=== PATIENT | male | born 1950 | race Caucasian/White ===

== ENCOUNTER → 2018-02-27 | Outpatient (CLI) | payer MEDICARE ==
[2018-02-27 21:50] LABS: Ragweed,Common IgE 4.28 kU/L
[2018-02-27 21:51] LABS: Red Top (Bentgrass) IgE 0.54 kU/L
[2018-02-27 21:52] LABS: Cat Epith & Dander IgE 0.12 kU/L; Dermato. farinae IgE 0.28 kU/L; Dog Dander IgE <0.10 kU/L
[2018-02-27 21:53] LABS: Cockroach IgE <0.10 kU/L
[2018-02-27 21:54] LABS: Alternaria alternata IgE <0.10 kU/L; Maple (Box Elder) IgE 0.67 kU/L
[2018-02-27 21:56] LABS: Birch IgE <0.10 kU/L; Elm IgE <0.10 kU/L; Oak IgE <0.10 kU/L
== END | disposition home or self-care (01) ==
LOC: LABWHC1 15:19
PROVIDERS: ATTEND Internal Medicine Critical Care Medicine
DX: J45.909 Unspecified asthma, uncomplicated (principal); T78.40XA Allergy, unspecified, initial encounter
CPT/HCPCS: 36415; 82785; 86003

== ENCOUNTER → 2023-01-24 | Outpatient (CLI) | payer MEDICARE ==
--- NOTE | 2023-01-24 09:03 | BD ---
EXAMINATION TYPE: Axial Bone Density DATE OF EXAM: 01/24/2023 CLINICAL HISTORY: 72 years old Male. ICD-10 CODE: R29.890 LOSS OF HEIGHT Height: 68.3 Weight: 239 FRAX RISK QUESTIONS: Glucocorticoids (More than 3mos): yes (Ex: prednisone, prednisolone, methylprednisolone, dexamethasone, and hydrocortisone). History of Fracture in Adulthood: yes RISK FACTORS HISTORY OF: hx of hand fx at 32 yrs old History of Wrist Fracture: hx of elbow fx at 15 yrs old, left Surgery to Spine...epidural injections into spine Lost more than 2 inches in height since high school: yes Hyperparathyroidism: no Adrenal Insufficiency: no MEDICATIONS: Prednisone or other steroids: yes, for back pain, often, copd and asthma, advair, many yrs Additional Medications: bp med, reflux meds, diuretic, vit d and multivitamin Additional History: height loss, hx of partial knee replacement, prednisone, arthritis, plantar fasci itis, EXAM MEASUREMENTS: Bone mineral densitometry was performed using the [facility]. Bone mineral density as measured about the Lumbar spine is: ----- L1-L4(G/cm2): 1.462 T Score Values are as follows: ----- L1: 1.5 ----- L2: 1.3 ----- L3: 2.3 ----- L4: 3.6 ----- L1-L4: 2.3 Z Score Values are as follows: ----- L1: 1.1 ----- L2: 0.8 ----- L3: 1.9 ----- L4: 3.1 ----- L1-L4: 1.9 Bone mineral density is his first bone density. Bone mineral density about the R hip (g/cm2): 1.063 Bone mineral density about the L hip (g/cm2): 1.124 T Score values are as follows: -----R Neck: 0.4 -----L Neck: 0.3 -----R Total: 0.4 -----L Total: 0.9 Z Score values are as follows: -----R Neck: 1.0 -----L Neck: 0.9 -----R Total: 0.1 -----L Total: 0.5 Bone mineral density is his first dexa study....baseline FRAX%s: The graph provided illustrates a 9.8% chance for a major osteoporotic fx and a 1.3% chance fo r the hips probability for fx in 10 years time. IMPRESSION: Normal (Values between +1 and -1 indicate normal bone mass). Consider repeating this study in 5 year s or sooner if there is some new clinical indication. NOTE: T-SCORE=SD OF THE YOUNG ADULT MEAN.
== END | disposition home or self-care (01) ==
LOC: RADBDWWP 07:59
PROVIDERS: ATTEND Family Medicine
DX: R29.890 Loss of height (principal)
CPT/HCPCS: 77080

== ENCOUNTER 2024-05-21 21:33 | Inpatient (IN) | payer MEDICARE ==
[2024-05-22] LABS: ALT 94 U/L (4-49); AST 90 U/L (17-59); African American GFR (CKD) >90 (>60 ml/min/1.73 sqM); Albumin 3.5 g/dL (3.5-5.0); Alkaline Phosphatase 130 U/L (38-126); Anion Gap 10 mmol/L; Blood Urea Nitrogen 16 mg/dL (9-20); Calcium 8.4 mg/dL (8.4-10.2); Carbon Dioxide 24 mmol/L (22-30); Chloride 97 mmol/L (98-107); Glucose 118 mg/dL (74-99); Non-African American GFR(CKD) 89 (>60 ml/min/1.73 sqM); Potassium 3.7 mmol/L (3.5-5.1); Sodium 131 mmol/L (137-145); Total Bilirubin 0.5 mg/dL (0.2-1.3); Total Protein 6.3 g/dL (6.3-8.2)
[2024-05-22 00:09] LABS: NT-Pro-B-Type Natriuretic Pept 124 pg/mL
--- NOTE | 2024-05-22 00:21 | XR ---
EXAM: XR Chest, 2 Views CLINICAL HISTORY: ITS.REASON XR Reason: difficulty breathing TECHNIQUE: Frontal and lateral views of the chest. COMPARISON: Chest x-ray of 05/15/2016. FINDINGS: Lungs: There is patchy airspace disease at the right mid lower lung zones presumably on the basilar pneumonia. Similar consolidative changes noted at the retrocardiac region of the left lung base. Pleural space: Unremarkable. No pneumothorax. Heart: Heart is normal in size. No cardiomegaly. Mediastinum: Unremarkable. Normal mediastinal contour. Bones/joints: Osseous structures and soft tissues are unremarkable. No acute fracture. IMPRESSION: Findings most suggestive of multifocal pneumonia. Clinical correlation and short-term imaging in 4-6 weeks is advised to document resolution. If there is concern for other etiologies, CT imaging of the chest should be performed.
[2024-05-22 00:27] LABS: Influenza A Not Detected (Not Detectd); Influenza B Not Detected (Not Detectd); RSV Detected (Not Detectd)
[2024-05-22 00:48] LABS: Basophils % (A) 0 %; Eosinophils # (A) 0.1 k/uL (0-0.7); Eosinophils % (A) 1 %; HCT 36.3 % (39.0-53.0); HGB 11.6 gm/dL (13.0-17.5); Lymphocytes # (A) 0.9 k/uL (1.0-4.8); Lymphocytes % (A) 10 %; MCH 28.6 pg (25.0-35.0); MCV 89.3 fL (80.0-100.0); Mean Platelet Volume 7.7; Monocytes # (A) 0.8 k/uL (0-1.0); Monocytes % (A) 9 %; Neutrophils # (A) 6.7 k/uL (1.3-7.7); Neutrophils % (A) 77 %; Platelet Count 293 k/uL (150-450); RBC 4.06 m/uL (4.30-5.90); RDW 13.9 % (11.5-15.5); WBC 8.7 k/uL (3.8-10.6)
[2024-05-22] MEDS ORDERED: IPRATROPIUM-ALBUTEROL 3 ML NEB INHALATION PRN (01:08)
[2024-05-22] MEDS ORDERED: PNEUMONIA PROTOCOL UTILIZED 1 EACH MISC PO PRN (01:08)
--- NOTE | 2024-05-22 01:09 | ED ---
SOB HPI - General Chief Complaint: Shortness of Breath Stated Complaint: JORGITO/+RSV Time Seen by Provider: 05/21/24 21:40 Source: patient Mode of arrival: ambulatory Limitations: no limitations - History of Present Illness Initial Comments: 73-year-old male with past medical history of asthma presents to the emergency department complaining of shortness of breath. States that last he went to an urgent care for upper respiratory symptoms and tested positive for RSV. States that his symptoms have gotten worse to the point where he feels like he cannot breathe. Patient does have a history of asthma. Previously used albuterol inhaler very sparingly. States that he would go for months without using it. During this illness he has been using it every 4 hours with continued shortness of breath. He denies any chest pain. States that his cough was originally productive with clear sputum and has turned to a thick, yellow sputum and he feels like he is choking. He has had intermittent fevers. His has also been sick. He reports that he does have oxygen at home however this is not prescribed him. He denies history of cardiac disease. Denies nausea or vomiting. He does have chronic swelling in his right lower extremity secondary to a DVT. States this is not any worse than previous. He denies any additional symptoms to include chest pain, headache, back pain. No other alleviating, precipitating or modifying factors - Related Data Allergies Allergy/AdvReac Type Severity Reaction Status Date / Time bacitracin Allergy Rash/Hives Verified 05/21/24 21:44 [From Neosporin ([id number])] neomycin Allergy Rash/Hives Verified 05/21/24 21:44 [From Neosporin ([id number])] Penicillins Allergy Rash/Hives Verified 05/21/24 21:44 polymyxin B Allergy Rash/Hives Verified 05/21/24 21:44 [From Neosporin ([id number])] lisinopril AdvReac Unknown Verified 05/21/24 21:44 Review of Systems ROS Statement: Those systems with pertinent positive or pertinent negative responses have been documented in the HPI. ROS Other: All systems not noted in ROS Statement are negative. Past Medical History Past Medical History: Asthma, Hyperlipidemia, Hypertension History of Any Multi-Drug Resistant Organisms: None Reported Past Surgical History: Joint Replacement Past Psychological History: No Psychological Hx Reported Smoking Status: Never smoker Past Alcohol Use History: Occasional Past Drug Use History: None Reported General Exam Limitations: no limitations General appearance: alert, in no apparent distress Head exam: Present: atraumatic, normocephalic, normal inspection Eye exam: Present: normal appearance, PERRL, EOMI. Absent: scleral icterus, conjunctival injection, periorbital swelling ENT exam: Present: normal exam, mucous membranes moist Neck exam: Present: normal inspection. Absent: tenderness, meningismus, lymphadenopathy Respiratory exam: Present: decreased breath sounds, other (Coarse breath sounds bilaterally). Absent: respiratory distress, wheezes, rales, rhonchi, stridor Cardiovascular Exam: Present: regular rate, normal rhythm, normal heart sounds. Absent: systolic murmur, diastolic murmur, rubs, gallop, clicks GI/Abdominal exam: Present: soft, normal bowel sounds. Absent: distended, tenderness, guarding, rebound, rigid Extremities exam: Present: normal inspection, full ROM, normal capillary refill. Absent: tenderness, pedal edema, joint swelling, calf tenderness Back exam: Present: normal inspection Neurological exam: Present: alert, oriented X3, CN II-XII intact Psychiatric exam: Present: normal affect, normal mood Skin exam: Present: warm, dry, intact, normal color. Absent: rash Course Vital Signs 05/21/24 05/21/24 05/21/24 21:40 22:13 22:21 Temperature 97.8 F 98.5 F Pulse Rate 84 73 Respiratory 18 20 20 Rate Blood Pressure 156/67 120/53 O2 Sat by Pulse 91 L 92 L Oximetry Medical Decision Making - Medical Decision Making Was pt. sent in by a medical professional or institution (, PA, BENEFITS SPECIALIST RECRUITER, urgent care, hospital, or snf...) When possible be specific @ -[No] Did you speak to anyone other than the patient for history (EMS, parent, family, police, friend...)? What history was obtained from this source @ -[No] Did you review nursing and triage notes (agree or disagree)? Why? @ -[I reviewed and agree with nursing and triage notes] Were old charts reviewed (outside hosp., previous admission, EMS record, old EKG, old radiological studies, urgent care reports/EKG's, snf records)? Report findings @ -[No old charts were reviewed] Differential Diagnosis (chest pain, altered mental status, abdominal pain women, abdominal pain men, vaginal bleeding, weakness, fever, dyspnea, syncope, headache, dizziness, GI bleed, back pain, seizure, CVA, palpatations, mental health, musculoskeletal)? @ -[not applicable] EKG interpreted by me (3pts min.). @ -Yes and demonstrates sinus rhythm with a rate of 78. [place] interval 249. QRS 100. QTc of 404. No acute ST segment elevations or depressions X-rays interpreted by me (1pt min.). @ -[None done] CT interpreted by me (1pt min.). @ -[None done] U/S interpreted by me (1pt. min.). @ -[None done] What testing was considered but not performed or refused? (CT, X-rays, U/S, labs)? Why? @ -[None] What meds were considered but not given or refused? Why? @ -[None] Did you discuss the management of the patient with other professionals ( professionals i.e. , PA, BENEFITS SPECIALIST RECRUITER, lab, RT, psych nurse, pediatric social worker, legislative aide, teacher, executive vice president and chief financial officer, telehealth case manager)? Give summary @ -[No] Was smoking cessation discussed for >3mins.? @ -[No] Was critical care preformed (if so, how long)? @ -[No] Were there social determinants of health that impacted care today? How? (Homelessness, low income, unemployed, alcoholism, drug addiction, transportati on, low edu. Level, literacy, decrease access to med. care, intermediate, rehab)? @ -[No] Was there de-escalation of care discussed even if they declined (Discuss DNR or withdrawal of care, Hospice)? DNR status @ -[No] What co-morbidities impacted this encounter? (DM, HTN, Smoking, COPD, CAD, Cancer, CVA, ARF, Chemo, Hep., AIDS, mental health diagnosis, sleep apnea, morbid obesity)? @ -[None] Was patient admitted / discharged? Hospital course, mention meds given and route, prescriptions, significant lab abnormalities, going to OR and other pertinent info. @ -[hospital course] Undiagnosed new problem with uncertain prognosis? @ -[No] Drug Therapy requiring intensive monitoring for toxicity (Heparin, Nitro, Insulin, Cardizem)? @ -[No] Were any procedures done? @ -[No] Diagnosis/symptom? @ -[default] Acute, or Chronic, or Acute on Chronic? @ -[default] Uncomplicated (without systemic symptoms) or Complicated (systemic symptoms)? @ -[default] Side effects of treatment? @ -[No] Exacerbation, Progression, or Severe Exacerbation? @ -[No] Poses a threat to life or bodily function? How? (Chest pain, USA, SD, pneumonia, PE, COPD, DKA, ARF, appy, cholecystitis, CVA, Diverticulitis, Homicidal, Suicidal, threat to staff... and all critical care pts) @ -[No] - Lab Data Result diagrams: 05/21/24 23:18 05/21/24 23:18 Lab Results 05/21/24 05/21/24 05/21/24 Range/Units 23:09 23:18 23:18 WBC 8.7 (3.8-10.6) k/uL RBC 4.06 L (4.30-5.90) m/uL Hgb 11.6 L (13.0-17.5) gm/dL Hct 36.3 L (39.0-53.0) % MCV 89.3 (80.0-100.0) fL MCH 28.6 (25.0-35.0) pg MCHC 32.0 (31.0-37.0) g/dL RDW 13.9 (11.5-15.5) % Plt Count 293 (150-450) k/uL MPV 7.7 Neutrophils % 77 % Lymphocytes % 10 % Monocytes % 9 % Eosinophils % 1 % Basophils % 0 % Neutrophils # 6.7 (1.3-7.7) k/uL Lymphocytes # 0.9 L (1.0-4.8) k/uL Monocytes # 0.8 (0-1.0) k/uL Eosinophils # 0.1 (0-0.7) k/uL Basophils # 0.0 (0-0.2) k/uL Sodium 131 L (137-145) mmol/L Potassium 3.7 (3.5-5.1) mmol/L Chloride 97 L (98-107) mmol/L Carbon Dioxide 24 (22-30) mmol/L Anion Gap 10 mmol/L BUN 16 (9-20) mg/dL Creatinine 0.79 (0.66-1.25) mg/dL Est GFR (CKD-EPI)AfAm >90 (>60 ml/min/1.73 sqM) Est GFR (CKD-EPI)NonAf 89 (>60 ml/min/1.73 sqM) Glucose 118 H (74-99) mg/dL Plasma Lactic Acid Nir (0.7-2.0) mmol/L Calcium 8.4 (8.4-10.2) mg/dL Total Bilirubin 0.5 (0.2-1.3) mg/dL AST 90 H (17-59) U/L ALT 94 H (4-49) U/L Alkaline Phosphatase 130 H (38-126) U/L Troponin I (0.000-0.034) ng/mL NT-Pro-B Natriuret Pep 124 pg/mL Total Protein 6.3 (6.3-8.2) g/dL Albumin 3.5 (3.5-5.0) g/dL Influenza Type A (PCR) Not Detected (Not Detectd) Influenza Type B (PCR) Not Detected (Not Detectd) RSV (PCR) Detected A (Not Detectd) SARS-CoV-2 (PCR) Not Detected (Not Detectd) 05/21/24 05/21/24 Range/Units 23:18 23:18 WBC (3.8-10.6) k/uL RBC (4.30-5.90) m/uL Hgb (13.0-17.5) gm/dL Hct (39.0-53.0) % MCV (80.0-100.0) fL MCH (25.0-35.0) pg MCHC (31.0-37.0) g/dL RDW (11.5-15.5) % Plt Count (150-450) k/uL MPV Neutrophils % % Lymphocytes % % Monocytes % % Eosinophils % % Basophils % % Neutrophils # (1.3-7.7) k/uL Lymphocytes # (1.0-4.8) k/uL Monocytes # (0-1.0) k/uL Eosinophils # (0-0.7) k/uL Basophils # (0-0.2) k/uL Sodium (137-145) mmol/L Potassium (3.5-5.1) mmol/L Chloride (98-107) mmol/L Carbon Dioxide (22-30) mmol/L Anion Gap mmol/L BUN (9-20) mg/dL Creatinine (0.66-1.25) mg/dL Est GFR (CKD-EPI)AfAm (>60 ml/min/1.73 sqM) Est GFR (CKD-EPI)NonAf (>60 ml/min/1.73 sqM) Glucose (74-99) mg/dL Plasma Lactic Acid Nir 1.0 (0.7-2.0) mmol/L Calcium (8.4-10.2) mg/dL Total Bilirubin (0.2-1.3) mg/dL AST (17-59) U/L ALT (4-49) U/L Alkaline Phosphatase (38-126) U/L Troponin I <0.012 (0.000-0.034) ng/mL NT-Pro-B Natriuret Pep pg/mL Total Protein (6.3-8.2) g/dL Albumin (3.5-5.0) g/dL Influenza Type A (PCR) (Not Detectd) Influenza Type B (PCR) (Not Detectd) RSV (PCR) (Not Detectd) SARS-CoV-2 (PCR) (Not Detectd) Disposition Clinical Impression: RSV bronchitis, CAP (community acquired pneumonia), Hypoxia Disposition: ADMITTED IP TO THIS HOSP Condition: Stable Is patient prescribed a controlled substance at d/c from ED?: No Referrals: Reena Aranda MD [Primary Care Provider] - 1-2 days Time of Disposition: 01:08 Decision to Admit Reason: Admit from EC Decision Date: 05/22/24 Decision Time: 01:08
[2024-05-22] MEDS: methylPREDNISolone SOD SUCCI 125 MG/2 ML VIAL IV STA (01:38)
[2024-05-22] MEDS: SODIUM CHLORIDE 0.9% 1,000 ML IV SCH (01:41)
[2024-05-22] MEDS: AZITHROMYCIN 500 MG in SODIUM CHLORIDE 0.9% 250 ML IVPB STA (04:33)
[2024-05-22] MEDS: predniSONE 20 MG TAB PO SCH (12:09)
[2024-05-22] MEDS: guaiFENesin 600 MG TABLET.ER PO SCH (12:10)
--- NOTE | 2024-05-22 14:36 | P.HPIM ---
History of Present Illness H&P Date: 05/22/24 History of present illness; patient 73-year-old gentleman with past medical history significant asthma who presented the ER because of shortness of breath. Patient stated that he has been feeling short of breath for the last 4 to 5 days. Patient stated that he was also having cough. Patient is complaining of lethargic and weakness. Patient was getting short of breath at rest as on exertion. Patient any chest pain. There is no complaint of fever or chills. Because of this shortness of breath, patient went to an urgent care on where he was found to have RSV infection. Patient noted his symptoms worsened over the next couple of days with cough becoming more productive with yellowish phlegm. Initial lab work done in the ER showed WBC 8.7, hemoglobin 9.6, platelet count 293, sodium 131, potassium 3.7, BUN 16, creatinine 0.79, glucose 118, AST 90, ALT 94 alk phos 130, troponin 0.012 Influenza A not detected Influenza B not detected RSV detected COVID-19 not detected Chest x-ray done in the ER showed findings of stable multifocal pneumonia. Patient admitted to internal medicine service REVIEW OF SYSTEMS: CONSTITUTIONAL: No fever, no malaise, no fatigue. HEENT: No recent visual problems or hearing problems. Denied any sore throat. CARDIOVASCULAR: As mentioned above PULMONARY: As mentioned above GASTROINTESTINAL: No diarrhea, no nausea, no vomiting, no abdominal pain. NEUROLOGICAL: No headaches, no weakness, no numbness. HEMATOLOGICAL: Denies any bleeding or petechiae. GENITOURINARY: Denies any burning micturition, frequency, or urgency. MUSCULOSKELETAL/RHEUMATOLOGICAL: Denies any joint pain, swelling, or any muscle pain. ENDOCRINE: Denies any polyuria or polydipsia. The rest of the 14-point review of systems is negative. PHYSICAL EXAMINATION: GENERAL: The patient is alert and oriented x3, not in any acute distress. Well developed, well nourished. HEENT: Pupils are round and equally reacting to light. EOMI. No scleral icterus. No conjunctival pallor. Normocephalic, atraumatic. No pharyngeal erythema. No thyromegaly. CARDIOVASCULAR: S1 and S2 present. No murmurs, rubs, or gallops. PULMONARY: Coarse breath sounds bilaterally, no wheezing or crackles. ABDOMEN: Soft, nontender, nondistended, normoactive bowel sounds. No palpable organomegaly. MUSCULOSKELETAL: No joint swelling or deformity. EXTREMITIES: No cyanosis, clubbing, or pedal edema. NEUROLOGICAL: Gross neurological examination did not reveal any focal deficits. SKIN: No rashes. Assessment and plan Acute RSV infection Acute hypoxic respiratory failure Bacterial pneumonia Hypertension Monitor vital signs Monitor CBC Monitor CMP Continue telemetry monitoring Blood cultures Ordered sputum cultures Ordered IV Rocephin, azithromycin Ordered breathing treatments Ordered mucolytic's with Mucinex Ordered cough suppressants Consult pulmonary Labs and medication were reviewed.. Continue same treatment. Continue with symptomatic treatment. Resume home medication. Monitor labs and vitals. DVT and GI prophylaxis. Further recommendations as per clinical course of the patient Dictation was produced using [employer] dictation software. please excuse any grammatical, word or spelling errors. Past Medical History Past Medical History: Asthma, Hyperlipidemia, Hypertension History of Any Multi-Drug Resistant Organisms: None Reported Past Surgical History: Joint Replacement Past Psychological History: No Psychological Hx Reported Smoking Status: Never smoker Past Alcohol Use History: Occasional Past Drug Use History: None Reported Medications and Allergies Home Medications Medication Instructions Recorded Confirmed Type Albuterol Nebulized [Ventolin 2.5 mg INHALATION RT-QID PRN 05/22/24 05/22/24 History Nebulized] Albuterol Sulfate [Ventolin HFA] 2 puff INHALATION RT-QID PRN 05/22/24 05/22/24 History Aspirin EC [Ecotrin Low Dose] 81 mg PO HS 05/22/24 05/22/24 History Ciclopirox 0.77% Gel 1 applic TOPICAL BID 05/22/24 05/22/24 History Ferrous Sulfate [Feosol] 325 mg PO DAILY 05/22/24 05/22/24 History Fluticasone Nasal [place] [Flonase 2 spr EA NOSTRIL DAILY 05/22/24 05/22/24 History Nasal [place]] Fluticasone Propion/Salmeterol 2 puff INHALATION RT-BID 05/22/24 05/22/24 History [Advair Hfa 230-21 Mcg Inhaler] Glucosamine 1500mg/Chondroitin 1 tab PO BID 05/22/24 05/22/24 History 1250mg/Vitamin D3 2000iu/Vitamin C 60mg Hydrocortisone Cream 1 applic TOPICAL BID 05/22/24 05/22/24 History [Hydrocortisone 2.5% Cream] Anna's Leg Cramps Pm 2 - 3 tab SL HS PRN 05/22/24 05/22/24 History Ibuprofen [Motrin Ib] 400 mg PO TID 05/22/24 05/22/24 History Loratadine [Claritin] 10 mg PO DAILY 05/22/24 05/22/24 History Losartan [Cozaar] 25 mg PO DAILY 05/22/24 05/22/24 History Metronidazole 0.75mg 1 applic TOPICAL HS 05/22/24 05/22/24 History Topical(Unknown If Cream Or Gel) Montelukast [Singulair] 10 mg PO HS 05/22/24 05/22/24 History Multivit-Min/FA/Lycopen/Lutein 1 tab PO DAILY 05/22/24 05/22/24 History [Centrum Silver Tablet] Triamcinolone 0.1% Cream [Kenalog 1 applic TOPICAL DAILY PRN 05/22/24 05/22/24 History 0.1% Cream] hydroCHLOROthiazide [Hydrodiuril] 25 mg PO DAILY 05/22/24 05/22/24 History Allergies Allergy/AdvReac Type Severity Reaction Status Date / Time bacitracin Allergy Rash/Hives Verified 05/22/24 12:57 [From Neosporin ([id number])] neomycin Allergy Rash/Hives Verified 05/22/24 12:57 [From Neosporin ([id number])] Penicillins Allergy Rash/Hives Verified 05/22/24 12:57 polymyxin B Allergy Rash/Hives Verified 05/22/24 12:57 [From Neosporin ([id number])] lisinopril AdvReac Cough Verified 05/22/24 12:57 Physical Exam Vitals: Vital Signs Temp Pulse Pulse Pulse Resp BP BP 05/22/24 07:39 98.1 F 71 16 143/70 05/22/24 02:00 98.9 F 81 16 158/89 05/22/24 01:45 71 20 142/68 05/21/24 22:21 20 05/21/24 22:13 98.5 F 73 20 120/53 05/21/24 21:40 97.8 F 84 18 156/67 Pulse Ox 05/22/24 07:39 94 L 05/22/24 02:00 94 L 05/22/24 01:45 94 L 05/21/24 22:21 05/21/24 22:13 92 L 05/21/24 21:40 91 L Intake and Output 05/21/24 05/22/24 05/22/24 22:59 06:59 14:59 Other: # Voids 2 Weight 99.79 kg 99.79 kg Results CBC & Chem 7: 05/21/24 23:18 05/21/24 23:18 Labs: Abnormal Lab Results - Last 24 Hours (Table) 05/21/24 05/21/24 05/21/24 Range/Units 23:09 23:18 23:18 RBC 4.06 L (4.30-5.90) m/uL Hgb 11.6 L (13.0-17.5) gm/dL Hct 36.3 L (39.0-53.0) % Lymphocytes # 0.9 L (1.0-4.8) k/uL Sodium 131 L (137-145) mmol/L Chloride 97 L (98-107) mmol/L Glucose 118 H (74-99) mg/dL AST 90 H (17-59) U/L ALT 94 H (4-49) U/L Alkaline Phosphatase 130 H (38-126) U/L RSV (PCR) Detected A (Not Detectd) Thrombosis Risk Factor Assmnt - Choose All That Apply Each Risk Factor Represents 2 Points: Age 61-74 years Thrombosis Risk Factor Assessment Total Risk Factor Score: 2 Thrombosis Risk Factor Assessment Level: Low Risk
--- NOTE | 2024-05-22 15:02 | P.CNPUL ---
History of Present Illness Consult date: 05/22/24 Requesting physician: Quan Jaime Reason for consult: dyspnea Chief complaint: Shortness of breath History of present illness: This is a 73-year-old male patient with a known history of mild intermittent chronic bronchial asthma, hypertension, hyperlipidemia who developed increasing shortness of breath, cough and congestion. Chest x-ray reveals patchy airspace disease bilaterally. White count 8.7. Hemoglobin 11.6. Platelets 293. Sodium 131. Potassium 3.7. Bicarb 24. BUN 16. Creatinine 0.79. Glucose 118. AST 90. ALT 94. Troponin negative. proBNP 124. Viral screen positive for RSV. He is seen today in consultation on the regular medical floor. He sitting up in bed. Awake and alert in no acute distress. Maintaining O2 saturations in the 90s on 3 L/min per nasal cannula. He is afebrile. Hemodynamically stable. Normal saline at 100 mL/h. Review of Systems REVIEW OF SYSTEMS: CONSTITUTIONAL: Denies any recent significant weight loss or weight gain. EYES: Denies change in vision. EARS, NOSE, MOUTH, THROAT: Denies headaches, denies sore throat. CARDIOVASCULAR: Denies chest pain, palpitations or syncopal episodes. RESPIRATORY: Positive for shortness of breath, cough, congestion no hemoptysis. GASTROINTESTINAL: Denies change in appetite, denies abdominal pain GENITOURINARY: Denies hematuria, denies infections. MUSKULOSKELETAL: Denies pain, denies swelling. INTEGUMENTARY: Denies rash, denies eczema. NEUROLOGICAL: Denies recent memory loss, no recent seizure activity. PSYCHIATRIC: Denies anxiety, denies depression. HEMATOLOGIC/LYMPHATIC: Denies anemia, denies enlarged lymph nodes. Past Medical History Past Medical History: Asthma, Hyperlipidemia, Hypertension History of Any Multi-Drug Resistant Organisms: None Reported Past Surgical History: Joint Replacement Past Psychological History: No Psychological Hx Reported Smoking Status: Never smoker Past Alcohol Use History: Occasional Past Drug Use History: None Reported Medications and Allergies Home Medications Medication Instructions Recorded Confirmed Type Albuterol Nebulized [Ventolin 2.5 mg INHALATION RT-QID PRN 05/22/24 05/22/24 History Nebulized] Albuterol Sulfate [Ventolin HFA] 2 puff INHALATION RT-QID PRN 05/22/24 05/22/24 History Aspirin EC [Ecotrin Low Dose] 81 mg PO HS 05/22/24 05/22/24 History Ciclopirox 0.77% Gel 1 applic TOPICAL BID 05/22/24 05/22/24 History Ferrous Sulfate [Feosol] 325 mg PO DAILY 05/22/24 05/22/24 History Fluticasone Nasal [place] [Flonase 2 spr EA NOSTRIL DAILY 05/22/24 05/22/24 H istory Nasal [place]] Fluticasone Propion/Salmeterol 2 puff INHALATION RT-BID 05/22/24 05/22/24 History [Advair Hfa 230-21 Mcg Inhaler] Glucosamine 1500mg/Chondroitin 1 tab PO BID 05/22/24 05/22/24 History 1250mg/Vitamin D3 2000iu/Vitamin C 60mg Hydrocortisone Cream 1 applic TOPICAL BID 05/22/24 05/22/24 History [Hydrocortisone 2.5% Cream] Anna's Leg Cramps Pm 2 - 3 tab SL HS PRN 05/22/24 05/22/24 History Ibuprofen [Motrin Ib] 400 mg PO TID 05/22/24 05/22/24 History Loratadine [Claritin] 10 mg PO DAILY 05/22/24 05/22/24 History Losartan [Cozaar] 25 mg PO DAILY 05/22/24 05/22/24 History Metronidazole 0.75mg 1 applic TOPICAL HS 05/22/24 05/22/24 History Topical(Unknown If Cream Or Gel) Montelukast [Singulair] 10 mg PO HS 05/22/24 05/22/24 History Multivit-Min/FA/Lycopen/Lutein 1 tab PO DAILY 05/22/24 05/22/24 History [Centrum Silver Tablet] Triamcinolone 0.1% Cream [Kenalog 1 applic TOPICAL DAILY PRN 05/22/24 05/22/24 History 0.1% Cream] hydroCHLOROthiazide [Hydrodiuril] 25 mg PO DAILY 05/22/24 05/22/24 History Allergies Allergy/AdvReac Type Severity Reaction Status Date / Time bacitracin Allergy Rash/Hives Verified 05/22/24 12:57 [From Neosporin ([id number])] neomycin Allergy Rash/Hives Verified 05/22/24 12:57 [From Neosporin ([id number])] Penicillins Allergy Rash/Hives Verified 05/22/24 12:57 polymyxin B Allergy Rash/Hives Verified 05/22/24 12:57 [From Neosporin ([id number])] lisinopril AdvReac Cough Verified 05/22/24 12:57 Physical Exam Vitals: Vital Signs Temp Pulse Pulse Pulse Resp BP BP 05/22/24 13:05 98.5 F 82 18 141/74 05/22/24 12:32 05/22/24 07:39 98.1 F 71 16 143/70 05/22/24 02:00 98.9 F 81 16 158/89 05/22/24 01:45 71 20 142/68 05/21/24 22:21 20 05/21/24 22:13 98.5 F 73 20 120/53 05/21/24 21:40 97.8 F 84 18 156/67 Pulse Ox 05/22/24 13:05 93 L 05/22/24 12:32 94 L 05/22/24 07:39 94 L 05/22/24 02:00 94 L 05/22/24 01:45 94 L 05/21/24 22:21 05/21/24 22:13 92 L 05/21/24 21:40 91 L Intake and Output 05/21/24 05/22/24 05/22/24 22:59 06:59 14:59 Other: # Voids 2 Weight 99.79 kg 99.79 kg GENERAL EXAM: Alert, pleasant 73-year-old male, on 3 L nasal cannula, fairly comfortable in no apparent distress. HEAD: Normocephalic. EYES: Normal reaction of pupils, equal size. NOSE: Clear with pink turbinates. THROAT: No erythema or exudates. NECK: No masses, no JVD. CHEST: No chest wall deformity. LUNGS: Equal air entry with few scattered rhonchi bilaterally, wheeze. CVS: S1 and S2 normal with no audible murmur, regular rhythm. ABDOMEN: No hepatosplenomegaly, normal bowel sounds, no guarding or rigidity. SPINE: No scoliosis or deformity SKIN: No rashes CENTRAL NERVOUS SYSTEM: No focal deficits, tone is normal in all 4 extremities. EXTREMITIES: There is no peripheral edema. No clubbing, no cyanosis. Peripheral pulses are intact. Results - Laboratory Findings CBC and BMP: 05/21/24 23:18 05/21/24 23:18 Abnormal lab findings: Abnormal Labs 05/21/24 05/21/24 05/21/24 23:09 23:18 23:18 RBC 4.06 L Hgb 11.6 L Hct 36.3 L Lymphocytes # 0.9 L Sodium 131 L Chloride 97 L Glucose 118 H AST 90 H ALT 94 H Alkaline Phosphatase 130 H RSV (PCR) Detected A - Diagnostic Findings Chest x-ray: image reviewed Assessment and Plan Assessment: Acute hypoxemic respiratory failure secondary to an acute exacerbation of mild intermittent chronic bronchial asthma complicated by RSV Acute RSV infection History of mild intermittent chronic bronchial asthma Hyperlipidemia Hypertension Plan: The patient was seen and evaluated Chest x-ray, labs and medications reviewed Check a procalcitonin Continue antibiotics for now Continue DuoNeb and elations, Symbicort, prednisone Continue Mucinex and Tessalon Perles as needed Titrate down the FiO2 as tolerated Increase his activity as tolerated We will continue to follow and make further recommendations based on his clinical status I have personally seen and examined the patient, performed the documentation and the assessment and plan as written. Number of minutes spent on the visit: 20 Dictation was produced using [employer] dictation software. Please excuse any grammatical, word or spelling errors.
[2024-05-22 15:36] VITALS: BMI 33.4
[2024-05-22] MEDS: LORATADINE 10 MG TAB PO SCH (15:52)
[2024-05-22] MEDS: IBUPROFEN 400 MG TAB PO SCH (16:08)
[2024-05-22] MEDS: SYMBICORT 160-4.5 MCG INHALER INHALATION SCH (20:37)
[2024-05-22] MEDS ORDERED: D3 PO SCH (21:00)
[2024-05-22] MEDS ORDERED: GLUCOSAMINE PO SCH (21:00)
[2024-05-22] MEDS ORDERED: [UNRECOGNIZED DRUG - OTHER] PO SCH (21:00)
[2024-05-22] MEDS: MONTELUKAST 10 MG TAB PO SCH (21:57)
[2024-05-22] MEDS: ASPIRIN 81 MG PO SCH (21:57)
--- NOTE | 2024-05-23 07:08 | XR ---
Chest, 2 view. CLINICAL INDICATION: Male, 73 years old with history of pneumonia COMPARISON: TECHNIQUE: PA and lateral views the chest are obtained. FINDINGS: There is no change in the partially consolidative and interstitial process in the right lower lobe. S table similar process in the left lower lobe. There is no pleural effusion or pneumothorax. The heart is normal in size. The osseous structures are intact. IMPRESSION: No change in the acute cardiopulmonary process in the lower lobes, right greater than lef t. [facility], , 05/23/2024 7:06 AM
[2024-05-23] MEDS: MULTIVITAMINS, THERA 1 EACH TAB PO SCH (08:26)
[2024-05-23] MEDS: LOSARTAN 25 MG TAB PO SCH (08:26)
[2024-05-23] MEDS: FERROUS SULFATE 325 MG TAB PO SCH (08:26)
[2024-05-23] MEDS: hydroCHLOROthiazide 25 MG TAB PO SCH (08:26)
[2024-05-23] MEDS: AZITHROMYCIN 500 MG TAB PO SCH (08:28)
[2024-05-23] MEDS: FLUTICASONE NASAL 50MCG/SPRAY 16GM BTL EA NOSTRIL SCH (09:08)
--- NOTE | 2024-05-23 13:38 | P.PN ---
Subjective Progress Note Date: 05/23/24 patient 73-year-old gentleman with past medical history significant asthma who presented the ER because of shortness of breath. Patient stated that he has been feeling short of breath for the last 4 to 5 days. Patient stated that he was also having cough. Patient is complaining of lethargic and weakness. Patient was getting short of breath at rest as on exertion. Patient any chest pain. There is no complaint of fever or chills. Because of this shortness of breath, patient went to an urgent care on where he was found to have RSV infection. Patient noted his symptoms worsened over the next couple of days with cough becoming more productive with yellowish phlegm. Initial lab work done in the ER showed WBC 8.7, hemoglobin 9.6, platelet count 293, sodium 131, potassium 3.7, BUN 16, creatinine 0.79, glucose 118, AST 90, ALT 94 alk phos 130, troponin 0.012 Influenza A not detected Influenza B not detected RSV detected COVID-19 not detected Chest x-ray done in the ER showed findings of stable multifocal pneumonia. Patient admitted to internal medicine service 05/23. Patient seen and examined. Antibiotics were discontinued as Pro-Brendon was negative. Stated he feels better. Currently on 3 L of oxygen. Still complaining of cough and congestion REVIEW OF SYSTEMS: CONSTITUTIONAL: No fever, no malaise,. CARDIOVASCULAR: No chest pain, no palpitations, no syncope. PULMONARY: As mentioned above GASTROINTESTINAL: No diarrhea, no nausea, no vomiting, no abdominal pain. NEUROLOGICAL: No headaches, no weakness, PHYSICAL EXAMINATION: GENERAL: The patient is alert and oriented x3, not in any acute distress. Well developed, well nourished. HEENT: Pupils are round and equally reacting to light. EOMI. No scleral icterus. No conjunctival pallor. Normocephalic, atraumatic. No pharyngeal erythema. No thyromegaly. CARDIOVASCULAR: S1 and S2 present. No murmurs, rubs, or gallops. PULMONARY: Coarse breath sounds bilaterally, no wheezing or crackles. ABDOMEN: Soft, nontender, nondistended, normoactive bowel sounds. No palpable organomegaly. MUSCULOSKELETAL: No joint swelling or deformity. EXTREMITIES: No cyanosis, clubbing, or pedal edema. NEUROLOGICAL: Gross neurological examination did not reveal any focal deficits. SKIN: No rashes. Assessment and plan Acute RSV infection Acute hypoxic respiratory failure Bacterial pneumonia Hypertension Monitor vital signs Monitor CBC Monitor CMP Continue telemetry monitoring Encourage use of incentive spirometer Aggressive bronchopulmonary hygiene Antibiotic discontinued as Pro-Brendon is normal Continue breathing treatment Continue prednisone DC fluids Pulmonology following Labs and medication were reviewed.. Continue same treatment. Continue with symptomatic treatment. Resume home medication. Monitor labs and vitals. DVT and GI prophylaxis. Further recommendations as per clinical course of the patient Dictation was produced using [employer] dictation software. please excuse any grammatical, word or spelling errors. Objective - Vital Signs Vital signs: Vital Signs Temp 97.7 F 05/23/24 07:22 Pulse 62 05/23/24 07:22 Resp 18 05/23/24 07:22 BP 140/61 05/23/24 07:22 Pulse Ox 95 05/23/24 07:22 FiO2 Intake & Output 05/22/24 05/23/24 05/23/24 17:59 06:59 18:59 Intake Total Balance Weight Intake: Intake, IV Titration Amount Sodium Chloride 0.9% 1, 000 ml @ 100 mls/hr IV . Q10H [facility] Rx#:[id number] Oral Other: # Voids # Bowel Movements - Labs CBC & Chem 7: 05/21/24 23:18 05/21/24 23:18 Labs: Microbiology - Last 24 Hours (Table) 05/22/24 01:09 Gram Stain - Preliminary Sputum
--- NOTE | 2024-05-23 13:58 | P.PN ---
Subjective Progress Note Date: 05/23/24 This is a 73-year-old male patient with a known history of mild intermittent chronic bronchial asthma, hypertension, hyperlipidemia who developed increasing shortness of breath, cough and congestion. Chest x-ray reveals patchy airspace disease bilaterally. White count 8.7. Hemoglobin 11.6. Platelets 293. Sodium 131. Potassium 3.7. Bicarb 24. BUN 16. Creatinine 0.79. Glucose 118. AST 90. ALT 94. Troponin negative. proBNP 124. Viral screen positive for RSV. He is seen today in consultation on the regular medical floor. He sitting up in bed. Awake and alert in no acute distress. Maintaining O2 saturations in the 90s on 3 L/min per nasal cannula. He is afebrile. Hemodynamically stable. Normal saline at 100 mL/h. The patient is seen today May 23, 2024 in follow-up on the regular medical floor. He is currently sitting up in bed. Awake and alert in no acute distress. He is maintaining O2 saturations in the 90s on 3 L/min per nasal cannula. He has normal saline at 100 mL/h. His procalcitonin was 0.14. His antibiotics were discontinued. He remains on steroids and bronchodilators. He continues with a loose congested cough. Objective - Vital Signs Vital signs: Vital Signs Temp 97.7 F 05/23/24 07:22 Pulse 62 05/23/24 07:22 Resp 18 05/23/24 07:22 BP 140/61 05/23/24 07:22 Pulse Ox 95 05/23/24 07:22 FiO2 Intake & Output 05/22/24 05/23/24 05/23/24 17:59 06:59 18:59 Intake Total Balance Weight Intake: Intake, IV Titration Amount Sodium Chloride 0.9% 1, 000 ml @ 100 mls/hr IV . Q10H [facility] Rx#:[id number] Oral Other: # Voids # Bowel Movements - Exam GENERAL EXAM: Alert, 73-year-old male, on 3 L nasal cannula, comfortable in no apparent distress. HEAD: Normocephalic. EYES: Normal reaction of pupils, equal size. NOSE: Clear with pink turbinates. THROAT: No erythema or exudates. NECK: No masses, no JVD. CHEST: No chest wall deformity. LUNGS: Equal air entry with few scattered rhonchi bilaterally, wheeze. CVS: S1 and S2 normal with no audible murmur, regular rhythm. ABDOMEN: No hepatosplenomegaly, normal bowel sounds, no guarding or rigidity. SPINE: No scoliosis or deformity SKIN: No rashes CENTRAL NERVOUS SYSTEM: No focal deficits, tone is normal in all 4 extremities. EXTREMITIES: There is no peripheral edema. No clubbing, no cyanosis. Peripheral pulses are intact. - Labs CBC & Chem 7: 05/21/24 23:18 05/21/24 23:18 Labs: Microbiology - Last 24 Hours (Table) 05/22/24 01:09 Gram Stain - Preliminary Sputum Sputum Culture - Preliminary Assessment and Plan Assessment: Acute hypoxemic respiratory failure secondary to an acute exacerbation of mild intermittent chronic bronchial asthma complicated by RSV Acute RSV infection History of mild intermittent chronic bronchial asthma Hyperlipidemia Hypertension Plan: The patient was seen and evaluated Labs and medications reviewed Procalcitonin negative, antibiotics discontinued Continue antibiotics for now Continue DuoNeb inhalations, Symbicort, prednisone Continue Mucinex and Tessalon Perles as needed Titrate down the FiO2 as tolerated Increase his activity as tolerated We will continue to follow I have personally seen and examined the patient, performed the documentation and the assessment and plan as written. Number of minutes spent on the visit: 10 Dictation was produced using [employer] dictation software. Please excuse any grammatical, word or spelling errors.
[2024-05-24] MEDS: BENZONATATE 100 MG CAP PO PRN (08:19)
[2024-05-24 10:33] LABS: Basophils % (A) 0 %; Eosinophils # (A) 0.1 k/uL (0-0.7); Eosinophils % (A) 1 %; HCT 35.1 % (39.0-53.0); HGB 10.9 gm/dL (13.0-17.5); Hypochromasia Slight; Lymphocytes # (A) 1.6 k/uL (1.0-4.8); Lymphocytes % (A) 14 %; MCH 28.7 pg (25.0-35.0); MCV 92.6 fL (80.0-100.0); Monocytes # (A) 0.6 k/uL (0-1.0); Monocytes % (A) 5 %; Neutrophils # (A) 9.1 k/uL (1.3-7.7); Neutrophils % (A) 79 %; Platelet Count 326 k/uL (150-450); RBC 3.79 m/uL (4.30-5.90); RDW 13.8 % (11.5-15.5); WBC 11.6 k/uL (3.8-10.6)
[2024-05-24 10:54] LABS: ALT 191 U/L (4-49); AST 135 U/L (17-59); African American GFR (CKD) >90 (>60 ml/min/1.73 sqM); Albumin 3.1 g/dL (3.5-5.0); Albumin/Globulin Ratio 1.2; Alkaline Phosphatase 90 U/L (38-126); Anion Gap 5 mmol/L; Blood Urea Nitrogen 23 mg/dL (9-20); Calcium 8.5 mg/dL (8.4-10.2); Carbon Dioxide 30 mmol/L (22-30); Chloride 101 mmol/L (98-107); Globulin 2.6 g/dL; Glucose 96 mg/dL (74-99); Non-African American GFR(CKD) >90 (>60 ml/min/1.73 sqM); Potassium 4.2 mmol/L (3.5-5.1); Sodium 136 mmol/L (137-145); Total Bilirubin 0.5 mg/dL (0.2-1.3); Total Protein 5.7 g/dL (6.3-8.2)
--- NOTE | 2024-05-24 14:05 | P.PN ---
Subjective Progress Note Date: 05/24/24 patient 73-year-old gentleman with past medical history significant asthma who presented the ER because of shortness of breath. Patient stated that he has been feeling short of breath for the last 4 to 5 days. Patient stated that he was also having cough. Patient is complaining of lethargic and weakness. Patient was getting short of breath at rest as on exertion. Patient any chest pain. There is no complaint of fever or chills. Because of this shortness of breath, patient went to an urgent care on where he was found to have RSV infection. Patient noted his symptoms worsened over the next couple of days with cough becoming more productive with yellowish phlegm. Initial lab work done in the ER showed WBC 8.7, hemoglobin 9.6, platelet count 293, sodium 131, potassium 3.7, BUN 16, creatinine 0.79, glucose 118, AST 90, ALT 94 alk phos 130, troponin 0.012 Influenza A not detected Influenza B not detected RSV detected COVID-19 not detected Chest x-ray done in the ER showed findings of stable multifocal pneumonia. Patient admitted to internal medicine service 05/23. Patient seen and examined. Antibiotics were discontinued as Pro-Brendon was negative. Stated he feels better. Currently on 3 L of oxygen. Still complaining of cough and congestion 05/24. Patient seen and examined. Continues to be on 3 L of oxygen. States breathing has improved. Cough is also improved REVIEW OF SYSTEMS: CONSTITUTIONAL: No fever, no malaise,. CARDIOVASCULAR: No chest pain, no palpitations, no syncope. PULMONARY: As mentioned above GASTROINTESTINAL: No diarrhea, no nausea, no vomiting, no abdominal pain. NEUROLOGICAL: No headaches, no weakness, PHYSICAL EXAMINATION: GENERAL: The patient is alert and oriented x3, not in any acute distress. Well developed, well nourished. HEENT: Pupils are round and equally reacting to light. EOMI. No scleral icterus. No conjunctival pallor. Normocephalic, atraumatic. No pharyngeal erythema. No thyromegaly. CARDIOVASCULAR: S1 and S2 present. No murmurs, rubs, or gallops. PULMONARY: Coarse breath sounds bilaterally, no wheezing or crackles. ABDOMEN: Soft, nontender, nondistended, normoactive bowel sounds. No palpable organomegaly. MUSCULOSKELETAL: No joint swelling or deformity. EXTREMITIES: No cyanosis, clubbing, or pedal edema. NEUROLOGICAL: Gross neurological examination did not reveal any focal deficits. SKIN: No rashes. Assessment and plan Acute RSV infection Acute hypoxic respiratory failure Bacterial pneumonia Hypertension Monitor vital signs Monitor CBC Monitor CMP Continue telemetry monitoring Encourage use of incentive spirometer Aggressive bronchopulmonary hygiene Continue breathing treatment Continue prednisone Pulmonology following Labs and medication were reviewed.. Continue same treatment. Continue with symptomatic treatment. Resume home medication. Monitor labs and vitals. DVT and GI prophylaxis. Further recommendations as per clinical course of the patient Dictation was produced using [employer] dictation software. please excuse any grammatical, word or spelling errors. Objective - Vital Signs Vital signs: Vital Signs Temp 97.6 F 05/24/24 07:38 Pulse 70 05/24/24 07:38 Resp 18 05/24/24 07:38 BP 146/75 05/24/24 07:38 Pulse Ox 95 05/24/24 07:58 FiO2 Intake & Output 05/23/24 05/24/24 05/24/24 18:59 06:59 18:59 Intake Total 460 1080 Balance 460 1080 Intake: Oral 460 1080 Other: # Voids 2 2 # Bowel Movements 1 - Labs CBC & Chem 7: 05/24/24 10:04 05/24/24 10:15 Labs: Microbiology - Last 24 Hours (Table) 05/22/24 01:09 Gram Stain - Final Sputum Sputum Culture - Final
--- NOTE | 2024-05-24 16:58 | P.PN ---
Subjective Progress Note Date: 05/24/24 On 05/24/2024, the patient is feeling better. He is still requiring oxygen at 2 L with a pulse ox of 95%. He had an acute asthma exacerbation related to RSV infection. His chest x-ray also showed some increased bronchial vascular markings specially in lung base bilaterally consistent with tracheobronchitis. He has no specific complaints. He remains on Symbicort. He is on DuoNeb nebulized treatments [id number] and the patient is on prednisone 40 mg p.o. daily. The white cell count is 11.6 with a hemoglobin 10.9 and a platelet count of 326. Electrolytes are all within normal limits with a BUN of 23 and a creatinine of 0.7. Procalcitonin level is at 0.14. Legionella urine antigen was also negative. Clinically improving. Objective - Vital Signs Vital signs: Vital Signs Temp 98.2 F 05/24/24 12:21 Pulse 58 L 05/24/24 12:21 Resp 18 05/24/24 12:21 BP 138/67 05/24/24 12:21 Pulse Ox 95 05/24/24 12:21 FiO2 Intake & Output 05/23/24 05/24/24 05/24/24 18:59 06:59 18:59 Intake Total 460 1080 Balance 460 1080 Intake: Oral 460 1080 Other: # Voids 2 2 # Bowel Movements 1 - Exam GENERAL EXAM: Alert, 73-year-old male, on 2 L nasal cannula, comfortable in no apparent distress. HEAD: Normocephalic. EYES: Normal reaction of pupils, equal size. NOSE: Clear with pink turbinates. THROAT: No erythema or exudates. NECK: No masses, no JVD. CHEST: No chest wall deformity. LUNGS: Equal air entry with few scattered rhonchi bilaterally, wheeze. CVS: S1 and S2 normal with no audible murmur, regular rhythm. ABDOMEN: No hepatosplenomegaly, normal bowel sounds, no guarding or rigidity. SPINE: No scoliosis or deformity SKIN: No rashes CENTRAL NERVOUS SYSTEM: No focal deficits, tone is normal in all 4 extremities. EXTREMITIES: There is no peripheral edema. No clubbing, no cyanosis. Peripheral pulses are intact. - Labs CBC & Chem 7: 05/24/24 10:04 05/24/24 10:15 Labs: Abnormal Lab Results - Last 24 Hours (Table) 05/24/24 05/24/24 Range/Units 10:04 10:15 WBC 11.6 H (3.8-10.6) k/uL RBC 3.79 L (4.30-5.90) m/uL Hgb 10.9 L (13.0-17.5) gm/dL Hct 35.1 L (39.0-53.0) % Neutrophils # 9.1 H (1.3-7.7) k/uL Sodium 136 L (137-145) mmol/L BUN 23 H (9-20) mg/dL AST 135 H (17-59) U/L ALT 191 H (4-49) U/L Total Protein 5.7 L (6.3-8.2) g/dL Albumin 3.1 L (3.5-5.0) g/dL Microbiology - Last 24 Hours (Table) 05/22/24 01:09 Gram Stain - Final Sputum Sputum Culture - Final Assessment and Plan Plan: Acute hypoxemic respiratory failure secondary to an acute exacerbation of mild intermittent chronic bronchial asthma complicated by RSV Acute exacerbation of chronic bronchial asthma secondary to acute RSV infection Acute RSV infection History of mild intermittent chronic bronchial asthma Hyperlipidemia Hypertension Plan: Treatment remains symptomatic Wean down the FiO2 as tolerated and currently is on 2 L of oxygen nasal cannula Procalcitonin negative, antibiotics discontinued Continue antibiotics for now Continue DuoNeb inhalations, Symbicort prednisone burst taper currently on 40 mg p.o. daily Continue Mucinex and Tessalon Perles as needed Titrate down the FiO2 as tolerated Increase his activity as tolerated We will continue to follow Time with Patient: Greater than 30
[2024-05-25 02:18] VITALS: RESP 18
[2024-05-25 07:23] VITALS: TEMP 98.1
[2024-05-25 08:39] LABS: Basophils # (A) 0.03 X 10*3/uL (0.00-0.10); Basophils % (A) 0.3 %; Eosinophils # (A) 0.05 X 10*3/uL (0.04-0.35); Eosinophils % (A) 0.5 %; HCT 33.5 % (39.6-50.0); HGB 10.7 g/dL (13.0-17.0); Lymphocytes # (A) 2.07 X 10*3/uL (0.90-5.00); Lymphocytes % (A) 20.9 %; MCH 28.7 pg (27.0-32.0); MCHC 31.9 g/dL (32.0-37.0); MCV 89.8 FL (80.0-97.0); Mean Platelet Volume 9.8 FL (9.5-12.2); Monocytes # (A) 0.65 X 10*3/uL (0.20-1.00); Monocytes % (A) 6.6 %; NRBC Per 100 WBC 0 X 10*3/uL (0.00-0.01); Neutrophils # (A) 6.97 X 10*3/uL (1.80-7.70); Neutrophils % (A) 70.2 %; Platelet Count 310 X 10*3/uL (140-440); RBC 3.73 X 10*6/uL (4.40-5.60); WBC 9.92 X 10*3/uL (4.50-10.00)
[2024-05-25 08:45] LABS: ALT 204 U/L (10-49); AST 103 U/L (14-35); Albumin 3.3 g/dL (3.8-4.9); Albumin/Globulin Ratio 1.32 Ratio (1.60-3.17); Alkaline Phosphatase 91 U/L (41-126); Blood Urea Nitrogen 17.6 mg/dL (9.0-27.0); Calcium 8.6 mg/dL (8.7-10.3); Carbon Dioxide 27.8 mmol/L (21.6-31.8); Chloride 104 mmol/L (96-109); Globulin 2.5 g/dL (1.6-3.3); Glucose 102 mg/dL (70-110); Potassium 4.1 mmol/L (3.5-5.5); Sodium 141 mmol/L (135-145); Total Bilirubin <0.2 mg/dL (0.3-1.2); Total Protein 5.8 g/dL (6.2-8.2)
--- NOTE | 2024-05-25 13:02 | P.PN ---
Subjective Progress Note Date: 05/25/24 patient 73-year-old gentleman with past medical history significant asthma who presented the ER because of shortness of breath. Patient stated that he has been feeling short of breath for the last 4 to 5 days. Patient stated that he was also having cough. Patient is complaining of lethargic and weakness. Patient was getting short of breath at rest as on exertion. Patient any chest pain. There is no complaint of fever or chills. Because of this shortness of breath, patient went to an urgent care on where he was found to have RSV infection. Patient noted his symptoms worsened over the next couple of days with cough becoming more productive with yellowish phlegm. Initial lab work done in the ER showed WBC 8.7, hemoglobin 9.6, platelet count 293, sodium 131, potassium 3.7, BUN 16, creatinine 0.79, glucose 118, AST 90, ALT 94 alk phos 130, troponin 0.012 Influenza A not detected Influenza B not detected RSV detected COVID-19 not detected Chest x-ray done in the ER showed findings of stable multifocal pneumonia. Patient admitted to internal medicine service 05/23. Patient seen and examined. Antibiotics were discontinued as Pro-Brendon was negative. Stated he feels better. Currently on 3 L of oxygen. Still complaining of cough and congestion 05/24. Patient seen and examined. Continues to be on 3 L of oxygen. States breathing has improved. Cough is also improved 05/25. Patient seen and examined. Currently on 2 L of oxygen. 2D echo ordered by pulmonary, patient had a lot of questions about the disease process and treatment, all questions answered REVIEW OF SYSTEMS: CONSTITUTIONAL: No fever, no malaise,. CARDIOVASCULAR: No chest pain, no palpitations, no syncope. PULMONARY: As mentioned above GASTROINTESTINAL: No diarrhea, no nausea, no vomiting, no abdominal pain. NEUROLOGICAL: No headaches, no weakness, PHYSICAL EXAMINATION: GENERAL: The patient is alert and oriented x3, not in any acute distress. Well developed, well nourished. HEENT: Pupils are round and equally reacting to light. EOMI. No scleral icterus. No conjunctival pallor. Normocephalic, atraumatic. No pharyngeal erythema. No thyromegaly. CARDIOVASCULAR: S1 and S2 present. No murmurs, rubs, or gallops. PULMONARY: Coarse breath sounds bilaterally, no wheezing or crackles. ABDOMEN: Soft, nontender, nondistended, normoactive bowel sounds. No palpable organomegaly. MUSCULOSKELETAL: No joint swelling or deformity. EXTREMITIES: No cyanosis, clubbing, or pedal edema. NEUROLOGICAL: Gross neurological examination did not reveal any focal deficits. SKIN: No rashes. Assessment and plan Acute RSV infection Acute hypoxic respiratory failure Acute tracheobronchitis Bacterial pneumonia ruled out Hypertension Monitor vital signs Monitor CBC Monitor CMP Continue telemetry monitoring Encourage use of incentive spirometer Aggressive bronchopulmonary hygiene Continue breathing treatment Continue prednisone 2D echo ordered Pulmonology following Labs and medication were reviewed.. Continue same treatment. Continue with symptomatic treatment. Resume home medication. Monitor labs and vitals. DVT and GI prophylaxis. Further recommendations as per clinical course of the sue ent Dictation was produced using [employer] dictation software. please excuse any grammatical, word or spelling errors. Objective - Vital Signs Vital signs: Vital Signs Temp 98.1 F 05/25/24 07:11 Pulse 66 05/25/24 07:11 Resp 18 05/25/24 07:11 BP 140/63 05/25/24 07:11 Pulse Ox 94 L 05/25/24 08:56 FiO2 Intake & Output 05/24/24 05/25/24 05/25/24 18:59 06:59 18:59 Intake Total 540 Balance 540 Intake: Oral 540 Other: Voiding Method Toilet # Voids 5 3 # Bowel Movements 1 - Labs CBC & Chem 7: 05/25/24 03:34 05/25/24 03:34 Labs: Abnormal Lab Results - Last 24 Hours (Table) 05/24/24 05/24/24 05/25/24 Range/Units 10:04 10:15 03:34 WBC 11.6 H (3.8-10.6) k/uL RBC 3.79 L 3.73 L (4.30-5.90) m/uL Hgb 10.9 L 10.7 L (13.0-17.5) gm/dL Hct 35.1 L 33.5 L (39.0-53.0) % MCHC 31.9 L (32.0-37.0) g/dL Immature Gran # 0.15 H (0.00-0.04) X 10*3/uL Neutrophils # 9.1 H (1.3-7.7) k/uL Sodium 136 L (137-145) mmol/L BUN 23 H (9-20) mg/dL BUN/Creatinine Ratio (12.00-20.00) Ratio Calcium (8.7-10.3) mg/dL Total Bilirubin (0.3-1.2) mg/dL AST 135 H (17-59) U/L ALT 191 H (4-49) U/L Total Protein 5.7 L (6.3-8.2) g/dL Albumin 3.1 L (3.5-5.0) g/dL Albumin/Globulin Ratio (1.60-3.17) Ratio 05/25/24 Range/Units 03:34 WBC (3.8-10.6) k/uL RBC (4.30-5.90) m/uL Hgb (13.0-17.5) gm/dL Hct (39.0-53.0) % MCHC (32.0-37.0) g/dL Immature Gran # (0.00-0.04) X 10*3/uL Neutrophils # (1.3-7.7) k/uL Sodium (137-145) mmol/L BUN (9-20) mg/dL BUN/Creatinine Ratio 22.00 H (12.00-20.00) Ratio Calcium 8.6 L (8.7-10.3) mg/dL Total Bilirubin <0.2 L (0.3-1.2) mg/dL AST 103 H (17-59) U/L ALT 204 H (4-49) U/L Total Protein 5.8 L (6.3-8.2) g/dL Albumin 3.3 L (3.5-5.0) g/dL Albumin/Globulin Ratio 1.32 L (1.60-3.17) Ratio Microbiology - Last 24 Hours (Table) 05/22/24 01:09 Gram Stain - Final Sputum Sputum Culture - Final
[2024-05-25 14:52] VITALS: BP 137/70; PULSE 62
--- NOTE | 2024-05-25 18:21 | P.PN ---
Subjective Progress Note Date: 05/25/24 On 05/24/2024, the patient is feeling better. He is still requiring oxygen at 2 L with a pulse ox of 95%. He had an acute asthma exacerbation related to RSV infection. His chest x-ray also showed some increased bronchial vascular markings specially in lung base bilaterally consistent with tracheobronchitis. He has no specific complaints. He remains on Symbicort. He is on DuoNeb nebulized treatments [id number] and the patient is on prednisone 40 mg p.o. daily. The white cell count is 11.6 with a hemoglobin 10.9 and a platelet count of 326. Electrolytes are all within normal limits with a BUN of 23 and a creatinine of 0.7. Procalcitonin level is at 0.14. Legionella urine antigen was also negative. Clinically improving. On 05/25/2024, the patient is feeling better, oxygenation is improved and the patient is able to maintain a pulse ox of 94% on room air oxygen. Cough and congestion has also subsided. The white cell count is at 9 with a hemoglobin 10.7 and a platelet count of 310. Electrolytes are all within normal limits. LFTs are also improving. Legionella urine antigen was negative. Procalcitonin level was at 0.14. Echocardiogram was ordered and is pending for now. No nausea. No vomiting. Cough and congestion has subsided considerably since yesterday. Objective - Vital Signs Vital signs: Vital Signs Temp 98.1 F 05/25/24 14:00 Pulse 62 05/25/24 14:00 Resp 18 05/25/24 14:00 BP 137/70 05/25/24 14:00 Pulse Ox 95 05/25/24 14:00 FiO2 Intake & Output 05/24/24 05/25/24 05/25/24 18:59 06:59 18:59 Intake Total 540 Balance 540 Intake: Oral 540 Other: Voiding Method Toilet Toilet # Voids 5 3 # Bowel Movements 1 - Exam GENERAL EXAM: Alert, 73-year-old male, on 2 L of oxygen nasal cannula HEAD: Normocephalic. EYES: Normal reaction of pupils, equal size. NOSE: Clear with pink turbinates. THROAT: No erythema or exudates. NECK: No masses, no JVD. CHEST: No chest wall deformity. LUNGS: Improved aeration bilaterally, no significant wheezing CVS: S1 and S2 normal with no audible murmur, regular rhythm. ABDOMEN: No hepatosplenomegaly, normal bowel sounds, no guarding or rigidity. SPINE: No scoliosis or deformity SKIN: No rashes CENTRAL NERVOUS SYSTEM: No focal deficits, tone is normal in all 4 extremities. EXTREMITIES: There is no peripheral edema. No clubbing, no cyanosis. Per ipheral pulses are intact. - Labs CBC & Chem 7: 05/25/24 03:34 05/25/24 03:34 Labs: Abnormal Lab Results - Last 24 Hours (Table) 05/25/24 05/25/24 Range/Units 03:34 03:34 RBC 3.73 L (4.40-5.60) X 10*6/uL Hgb 10.7 L (13.0-17.0) g/dL Hct 33.5 L (39.6-50.0) % MCHC 31.9 L (32.0-37.0) g/dL Immature Gran # 0.15 H (0.00-0.04) X 10*3/uL BUN/Creatinine Ratio 22.00 H (12.00-20.00) Ratio Calcium 8.6 L (8.7-10.3) mg/dL Total Bilirubin <0.2 L (0.3-1.2) mg/dL AST 103 H (14-35) U/L ALT 204 H (10-49) U/L Total Protein 5.8 L (6.2-8.2) g/dL Albumin 3.3 L (3.8-4.9) g/dL Albumin/Globulin Ratio 1.32 L (1.60-3.17) Ratio Microbiology - Last 24 Hours (Table) 05/22/24 01:09 Legionella Culture - Preliminary Sputum Assessment and Plan Plan: Acute hypoxemic respiratory failure secondary to an acute exacerbation of mild intermittent chronic bronchial asthma complicated by RSV, oxygenation is improved and the patient may be transition to room air oxygen. Home O2 evaluation is to be done Acute exacerbation of chronic bronchial asthma secondary to acute RSV infection, improving Acute RSV infection History of mild intermittent chronic bronchial asthma Hyperlipidemia Hypertension Plan: Clinically improved compared to yesterday. Will do home O2 evaluation Procalcitonin negative, antibiotics discontinued Continue antibiotics for now Continue DuoNeb inhalations, Symbicort prednisone burst taper currently on 40 mg p.o. daily Continue Mucinex and Tessalon Perles as needed Titrate down the FiO2 as tolerated Increase his activity as tolerated Possible discharge either today or within the next 24 hours.
--- NOTE | 2024-05-27 09:43 | P.DS ---
Providers Date of admission: 05/22/24 01:09 Expected date of discharge: 05/25/24 Attending physician: Miguel Fuentes MD Consults: 05/22/24 01:08 Consult Physician Routine Consulting Provider: Ramírez Melvin Consult Reason/Comments: acute hypoxia, rsv bronchitis, CAP Do you want consulting provider notified?: Yes Primary care physician: Reena Aranda [facility] Course: Discharge diagnoses; Acute RSV infection Acute hypoxic respiratory failure Acute tracheobronchitis Hypertension Hospital course; patient 73-year-old gentleman with past medical history significant asthma who presented the ER because of shortness of breath. Patient stated that he has been feeling short of breath for the last 4 to 5 days. Patient stated that he was also having cough. Patient is complaining of lethargic and weakness. Patient was getting short of breath at rest as on exertion. Patient any chest pain. There is no complaint of fever or chills. Because of this shortness of breath, patient went to an urgent care on where he was found to have RSV infection. Patient noted his symptoms worsened over the next couple of days with cough becoming more productive with yellowish phlegm. Initial lab work done in the ER showed WBC 8.7, hemoglobin 9.6, platelet count 293, sodium 131, potassium 3.7, BUN 16, creatinine 0.79, glucose 118, AST 90, ALT 94 alk phos 130, troponin 0.012 Influenza A not detected Influenza B not detected RSV detected COVID-19 not detected Chest x-ray done in the ER showed findings of stable multifocal pneumonia. Patient admitted to internal medicine service 05/23. Patient seen and examined. Antibiotics were discontinued as Pro-Brendon was negative. Stated he feels better. Currently on 3 L of oxygen. Still complaining of cough and congestion 05/24. Patient seen and examined. Continues to be on 3 L of oxygen. States breathing has improved. Cough is also improved 05/25. Patient seen and examined. Currently on 2 L of oxygen. 2D echo ordered by pulmonary, patient had a lot of questions about the disease process and treatment, all questions answered. Pulmonology evaluated patient, cleared the patient for discharge. 2D echo was ordered for outpatient. Being discharged on tapering dose of prednisone PHYSICAL EXAMINATION: GENERAL: The patient is alert and oriented x3, not in any acute distress. Well developed, well nourished. HEENT: Pupils are round and equally reacting to light. EOMI. No scleral icterus. No conjunctival pallor. Normocephalic, atraumatic. No pharyngeal erythema. No thyromegaly. CARDIOVASCULAR: S1 and S2 present. No murmurs, rubs, or gallops. PULMONARY: Chest is clear to auscultation, no wheezing or crackles. ABDOMEN: Soft, nontender, nondistended, normoactive bowel sounds. No palpable organomegaly. MUSCULOSKELETAL: No joint swelling or deformity. EXTREMITIES: No cyanosis, clubbing, or pedal edema. NEUROLOGICAL: Gross neurological examination did not reveal any focal deficits. SKIN: No rashes. Dictation was produced using [employer] dictation software. please excuse any grammatical, word or spelling errors. Patient Condition at Discharge: Stable Plan - Discharge Summary Discharge Rx Participant: No New Discharge Prescriptions: New guaiFENesin [Mucinex] 600 mg PO Q12HR PRN 10 Days #20 tab PRN Reason: Congestion predniSONE See Taper PO DIRECTED #30 tab Benzonatate [Tessalon Perles] 200 mg PO TID PRN #12 cap PRN Reason: Cough Continue Glucosamine 1500mg/Chondroitin 1250mg/Vitamin D3 2000iu/Vitamin C 60mg 1 tab PO BID Ferrous Sulfate [Iron (65 MG Elemental)] 325 mg PO DAILY Aspirin EC [Ecotrin Low Dose] 81 mg PO HS Hydrocortisone Cream [Hydrocortisone 2.5% Cream] 1 applic TOPICAL BID Montelukast [Singulair] 10 mg PO HS Fluticasone Propion/Salmeterol [Advair Hfa 230-21 Mcg Inhaler] 2 puff INHALATION RT-BID Losartan [Cozaar] 25 mg PO DAILY Fluticasone Nasal [place] [Flonase Nasal [place]] 2 spr EA NOSTRIL DAILY Ciclopirox 0.77% Gel 1 applic TOPICAL BID Multivit-Min/FA/Lycopen/Lutein [Centrum Silver Tablet] 1 tab PO DAILY Loratadine [Claritin] 10 mg PO DAILY Ibuprofen [Motrin Ib] 400 mg PO TID Triamcinolone 0.1% Cream [Kenalog 0.1% Cream] 1 applic TOPICAL DAILY PRN PRN Reason: Rash Albuterol Sulfate [Ventolin HFA] 2 puff INHALATION RT-QID PRN PRN Reason: Shortness Of Breath Albuterol Nebulized [Ventolin Nebulized] 2.5 mg INHALATION RT-QID PRN PRN Reason: Shortness Of Breath hydroCHLOROthiazide [Hydrodiuril] 25 mg PO DAILY Anna's Leg Cramps Pm 2 - 3 tab SL HS PRN PRN Reason: leg cramps metroNIDAZOLE 1% GEL [Metrogel 1%] 1 applic TOPICAL DAILY Discharge Medication List Albuterol Nebulized [Ventolin Nebulized] 2.5 mg INHALATION RT-QID PRN 05/22/24 [History] Albuterol Sulfate [Ventolin HFA] 2 puff INHALATION RT-QID PRN 05/22/24 [History] Aspirin EC [Ecotrin Low Dose] 81 mg PO HS 05/22/24 [History] Ciclopirox 0.77% Gel 1 applic TOPICAL BID 05/22/24 [History] Ferrous Sulfate [Iron (65 MG Elemental)] 325 mg PO DAILY 05/22/24 [History] Fluticasone Nasal [place] [Flonase Nasal [place]] 2 spr EA NOSTRIL DAILY 05/22/24 [History] Fluticasone Propion/Salmeterol [Advair Hfa 230-21 Mcg Inhaler] 2 puff INHALATION RT-BID 05/22/24 [History] Glucosamine 1500mg/Chondroitin 1250mg/Vitamin D3 2000iu/Vitamin C 60mg 1 tab PO BID 05/22/24 [History] Hydrocortisone Cream [Hydrocortisone 2.5% Cream] 1 applic TOPICAL BID 05/22/24 [History] Anna's Leg Cramps Pm 2 - 3 tab SL HS PRN 05/22/24 [History] Ibuprofen [Motrin Ib] 400 mg PO TID 05/22/24 [History] Loratadine [Claritin] 10 mg PO DAILY 05/22/24 [History] Losartan [Cozaar] 25 mg PO DAILY 05/22/24 [History] Montelukast [Singulair] 10 mg PO HS 05/22/24 [History] Multivit-Min/FA/Lycopen/Lutein [Centrum Silver Tablet] 1 tab PO DAILY 05/22/24 [History] Triamcinolone 0.1% Cream [Kenalog 0.1% Cream] 1 applic TOPICAL DAILY PRN 05/22/24 [History] hydroCHLOROthiazide [Hydrodiuril] 25 mg PO DAILY 05/22/24 [History] metroNIDAZOLE 1% GEL [Metrogel 1%] 1 applic TOPICAL DAILY 05/24/24 [History] Benzonatate [Tessalon Perles] 200 mg PO TID PRN #12 cap 05/25/24 [Rx] guaiFENesin [Mucinex] 600 mg PO Q12HR PRN 10 Days #20 tab 05/25/24 [Rx] predniSONE See Taper PO DIRECTED #30 tab 05/25/24 [Rx] Follow up Appointment(s)/Referral(s): Reena Aranda MD [Primary Care Provider] - 1-2 days (Office closed at time of discharge. Please call to make an appointment.) Marie Shen MD [STAFF PHYSICIAN] - 1 Week (Office closed at time of discharge. Please call to make an appointment.) Patient Instructions/Handouts: Respiratory Syncytial Virus (DC), Viral Pneumonia (DC) Activity/Diet/Wound Care/Special Instructions: Activity limited until follow-up Follow-up with primary care provider on discharge Follow-up with pulmonary outpatient Continue taking medications as prescribed Discharge Disposition: HOME SELF-CARE
== END 2024-05-25 16:47 | disposition home or self-care (01) | DRG 202 ==
LOC: EC 21:33 → 4SSUR 05-22 01:09
PROVIDERS: ADMIT Internal Medicine; ATTEND Internal Medicine
DX: J20.5 Acute bronchitis due to respiratory syncytial virus (principal); J12.9 Viral pneumonia, unspecified; J96.01 Acute respiratory failure with hypoxia; J45.901 Unspecified asthma with (acute) exacerbation; I10 Essential (primary) hypertension; Z11.52 Encounter for screening for COVID-19; E78.5 Hyperlipidemia, unspecified; Z79.899 Other long term (current) drug therapy; Z88.0 Allergy status to penicillin; Z88.1 Allergy status to other antibiotic agents; Z88.8 Allergy status to other drugs, medicaments and biological substances
CPT/HCPCS: 36415; 71046; 80053; 83605; 83880; 84145; 84484; 85025; 87070; 87205; 87449; 87636; 93005; 94640; 94760; 96374; 96375; 99285

== ENCOUNTER → 2024-07-06 | Day surgery (SDC) | payer MEDICARE ==
[~2024-07-06] MED LIST: ALPRAZolam 0.25 MG TAB PO PRN; ALPRAZolam 0.5 MG TAB PO PRN; APIXABAN 5 MG TAB PO SCH; HEPARIN SODIUM,PORCINE (1 ML) 2,500 UNIT in SODIUM CHLORIDE 0.9% 250 ML IRRIGATION PRN; HEPARIN SODIUM,PORCINE 10,000 UNIT in SODIUM CHLORIDE 0.9% 1,000 ML IRRIGATION PRN; ZOLPIDEM 5 MG TAB PO PRN
[2024-07-06] MEDS: IV FLUID CONTINUATION 1,000 ML IV ONE (07:34)
[2024-07-06] MEDS: EMPTY BAG 1 BAG with SODIUM CHLORIDE 0.9% 1,000 ML IV SCH (07:50)
[2024-07-06 08:06] LABS: Basophils # (A) 0.04 10*3/uL (0.00-0.10); Basophils % (A) 0.6 %; Eosinophils # (A) 0.15 10*3/uL (0.04-0.35); Eosinophils % (A) 2.2 %; HCT 37.2 % (39.6-50.0); HGB 12.5 g/dL (13.0-17.0); Lymphocytes # (A) 1.63 10*3/uL (0.90-5.00); MCH 29.1 pg (27.0-32.0); MCHC 33.6 g/dL (32.0-37.0); MCV 86.5 fL (80.0-97.0); Mean Platelet Volume 9.5 fL (9.5-12.2); Monocytes # (A) 0.67 10*3/uL (0.20-1.00); Monocytes % (A) 9.9 %; Neutrophils # (A) 4.28 10*3/uL (1.80-7.70); Platelet Count 279 10*3/uL (140-440); RDW 15.1 % (11.5-14.5); WBC 6.79 10*3/uL (4.50-10.00)
[2024-07-06 08:14] LABS: African American GFR (CKD) >90 (>60 ml/min/1.73 sqM); Anion Gap 10 mmol/L; Blood Urea Nitrogen 16 mg/dL (9-20); Calcium 9.4 mg/dL (8.4-10.2); Carbon Dioxide 25 mmol/L (22-30); Chloride 105 mmol/L (98-107); Glucose 107 mg/dL (74-99); Non-African American GFR(CKD) 89 (>60 ml/min/1.73 sqM); Potassium 3.8 mmol/L (3.5-5.1); Sodium 140 mmol/L (137-145)
[2024-07-06 08:16] VITALS: TEMP 98.5
[2024-07-06] MEDS: fentaNYL (PF) 50 MCG/ML 2 ML AMP IVP ONE ×2 (09:00→09:28)
[2024-07-06] MEDS: MIDAZOLAM 2 MG/2 ML VIAL IVP ONE ×2 (09:00→09:28)
[2024-07-06] MEDS: LIDOCAINE 1% INJ 10MG/ML (20 ML MDV) SQ ONE (09:03)
[2024-07-06] MEDS: HEPARIN SODIUM 1,000 UN/ML (10ML VL) IV ONE (09:27)
--- NOTE | 2024-07-06 10:21 | IR ---
EXAMINATION TYPE: IR venogram lower ext RT DATE OF EXAM: 07/06/2024 10:13 AM COMPARISON: Pre Operative Images if available both CT/MRI or plain film CLINICAL INDICATION: Male, 73 years old with history of right leg pain, 21.3min fluoro, 43.2Gycm2; TECHNIQUE: IR venogram lower ext RT, multiple fluoroscopic images provided for procedure. DAP: 43.2 mGym2 Gycm2 uGym2 cGycm2 or equivalent. FINDINGS: IMPRESSION: 1. Report was generated for administrative purposes only. 2. Please see the operative/procedural note for further details. [facility], , 07/06/2024 10:18 AM
--- NOTE | 2024-07-06 10:44 | P.OP ---
Date of Procedure: 07/06/24 Description of Procedure: Preoperative diagnosis: Extensive right lower extremity thrombus, iliofemoral to posterior tibial vessels, previous intervention, previous DVT Postoperative diagnosis: Same Procedure: 1. Ultrasound-guided right popliteal vein access with permanent image storage 2. Right lower extremity venogram 3. intravascular ultrasound right popliteal vein 4. Intravascular ultrasound right femoral vein 5. Moderate conscious sedation x minutes, direct monitoring of certified RN administration with personal hemodynamic monitoring 6. Fluoroscopic evaluation and interpretation Surgeon: Shawna Rivas D.O. 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 Due to this and the swelling along with pain, they were offered a mechanical thrombectomy, venogram, possible venoplasty and possible stent placement. He previously underwent interventions but they are uncertain of what the intervention actually was. They were told the wire got across the area but that was that. Risks and benefits including but not limited to bleeding, infection, embolism and injury to the vessel were all discussed. The patient seemingly understood and was willing to proceed. Procedure in detail: The patient was taken to the specials suite and placed in prone position. The popliteal area was prepped and draped in usual sterile fashion. A preprocedural timeout was performed, all parties were in agreement. The ultrasound was utilized to identify the right popliteal vein. It was found to be occluded at this level. The ultrasound was utilized and a permanent image was stored. Seldinger technique was used after direct cannulization with a micropuncture sheath and followed by an 8-Armenian sheath. An initial venogram was performed showing significant continued thrombus with no inline flow.Using catheters and wires, multiple attempts to traverse into the common femoral, there were significant areas of significant occlusion that were crossed through the femoral vein however at the level of the common femoral vein this was u nsuccessful. The IVUS was then utilized and visualization of the luminal gain was identified. Unfortunately due to the inability to cross any further there was no further intervention that could be obtained, again multiple catheters and wires were utilized to try to cross the area without success. At that point the procedure was concluded. The sheath was removed and manual pressure was held. Dressings were placed along with compression to the lower extremity. Patient was transferred back to recovery in stable condition having tolerated the procedure well. Plan - Discharge Summary Discharge Rx Participant: No New Discharge Prescriptions: No Action Glucosamine 1500mg/Chondroitin 1250mg/Vitamin D3 2000iu/Vitamin C 60mg 1 tab PO BID Ferrous Sulfate [Iron (65 MG Elemental)] 325 mg PO DAILY Montelukast [Singulair] 10 mg PO HS Fluticasone Propion/Salmeterol [Advair Hfa 230-21 Mcg Inhaler] 2 puff INHALATION RT-BID Losartan [Cozaar] 25 mg PO DAILY Fluticasone Nasal [place] [Flonase Nasal [place]] 2 spr EA NOSTRIL DAILY Ciclopirox 0.77% Gel 1 applic TOPICAL BID Apixaban [Eliquis] 5 mg PO BID Magnesium Oxide [Magnesium] 500 mg PO DAILY Tolnaftate Barnard 1 spray TOPICAL DIRECTED PRN PRN Reason: Rash Fluticasone Propion/Salmeterol [Advair Hfa 230-21 Mcg Inhaler] 2 puff INHALATION BID Multivit-Min/FA/Lycopen/Lutein [Centrum Silver Tablet] 1 tab PO DAILY Loratadine [Claritin] 10 mg PO DAILY Ibuprofen [Motrin Ib] 400 mg PO DIRECTED PRN PRN Reason: Pain Triamcinolone 0.1% Cream [Kenalog 0.1% Cream] 1 applic TOPICAL DAILY PRN PRN Reason: Rash Albuterol Sulfate [Ventolin HFA] 2 puff INHALATION RT-QID PRN PRN Reason: Shortness Of Breath Albuterol Nebulized [Ventolin Nebulized] 2.5 mg INHALATION RT-QID PRN PRN Reason: Shortness Of Breath hydroCHLOROthiazide [Hydrodiuril] 25 mg PO DAILY Anna's Leg Cramps Pm 2 - 3 tab SL HS PRN PRN Reason: leg cramps metroNIDAZOLE 1% GEL [Metrogel 1%] 1 applic TOPICAL DAILY Hydrocortisone Cream [Hydrocortisone 1% Cream] 1 applic TOPICAL BID Discharge Medication List Albuterol Nebulized [Ventolin Nebulized] 2.5 mg INHALATION RT-QID PRN 05/22/24 [History] Albuterol Sulfate [Ventolin HFA] 2 puff INHALATION RT-QID PRN 05/22/24 [History] Ciclopirox 0.77% Gel 1 applic TOPICAL BID 05/22/24 [History] Ferrous Sulfate [Iron (65 MG Elemental)] 325 mg PO DAILY 05/22/24 [History] Fluticasone Nasal [place] [Flonase Nasal [place]] 2 spr EA NOSTRIL DAILY 05/22/24 [History] Fluticasone Propion/Salmeterol [Advair Hfa 230-21 Mcg Inhaler] 2 puff INHALATION RT-BID 05/22/24 [History] Glucosamine 1500mg/Chondroitin 1250mg/Vitamin D3 2000iu/Vitamin C 60mg 1 tab PO BID 05/22/24 [History] Anna's Leg Cramps Pm 2 - 3 tab SL HS PRN 05/22/24 [History] Ibuprofen [Motrin Ib] 400 mg PO DIRECTED PRN 05/22/24 [History] Loratadine [Claritin] 10 mg PO DAILY 05/22/24 [History] Losartan [Cozaar] 25 mg PO DAILY 05/22/24 [History] Montelukast [Singulair] 10 mg PO HS 05/22/24 [History] Multivit-Min/FA/Lycopen/Lutein [Centrum Silver Tablet] 1 tab PO DAILY 05/22/24 [History] Triamcinolone 0.1% Cream [Kenalog 0.1% Cream] 1 applic TOPICAL DAILY PRN 05/22/24 [History] hydroCHLOROthiazide [Hydrodiuril] 25 mg PO DAILY 05/22/24 [History] metroNIDAZOLE 1% GEL [Metrogel 1%] 1 applic TOPICAL DAILY 05/24/24 [History] Apixaban [Eliquis] 5 mg PO BID 07/01/24 [History] Hydrocortisone Cream [Hydrocortisone 1% Cream] 1 applic TOPICAL BID 07/01/24 [History] Magnesium Oxide [Magnesium] 500 mg PO DAILY 07/01/24 [History] Tolnaftate Barnard 1 spray TOPICAL DIRECTED PRN 07/01/24 [History] Fluticasone Propion/Salmeterol [Advair Hfa 230-21 Mcg Inhaler] 2 puff INHALATION BID 07/06/24 [History] Follow up Appointment(s)/Referral(s): Shawna Siegel DO [STAFF PHYSICIAN] - 07/21/24 10:00 am (PATIENT HAD FOLLOW UP APPOINTMENT ALREADY SCHEDULED FOR July AT 10:00. )
[2024-07-06] MEDS: APIXABAN 5 MG TAB PO SCH (11:05)
[2024-07-06 14:55] VITALS: BP 139/64; PULSE 64; RESP 16
== END | disposition home or self-care (01) ==
LOC: CATHCVL 07:06
PROVIDERS: ATTEND Surgery
DX: Z86.718 Personal history of other venous thrombosis and embolism (principal); Z88.0 Allergy status to penicillin; Z88.8 Allergy status to other drugs, medicaments and biological substances; Z79.01 Long term (current) use of anticoagulants; Z79.899 Other long term (current) drug therapy
CPT/HCPCS: 36005; 75820; 76937; 37252; 37253; 80048; 85025; C1894 ×2; C1769 ×2; C1753; J2250; J2003; J3010; J1644

== ENCOUNTER → 2024-07-23 | Outpatient (CLI) | payer MEDICARE ==
--- NOTE | 2024-07-25 11:42 | CA ---
Transthoracic Echo Report Name: Keny Sousa Age: 73 Gender: M : 1950 Exam Date: 07/23/2024 13:54 Exam Location: [facility] Ht (in): 68 Wt (lb): 240 Ordering Physician: Marie Shen MD Attending/Referring Phys: [employer] Officer Niru Alarcon RDCS Procedure CPT: Indications: R94.31 ABNORMAL ELECTROCARDIOGRAM [ECG] [EKG] Cardiac Hx: Technical Quality: Fair Contrast 1: Total Dose (mL): Contrast 2: Total Dose (mL): MEASUREMENTS (Male / Female) Normal Values 2D ECHO LV Diastolic Diameter PLAX 3.6 cm 4.2 - 5.9 / 3.9 - 5.3 cm LV Systolic Diameter PLAX 1.9 cm IVS Diastolic Thickness 1.8 cm 0.6 - 1.0 / 0.6 - 0.9 cm LVPW Diastolic Thickness 1.5 cm 0.6 - 1.0 / 0.6 - 0.9 cm LV Relative Wall Thickness 0.9 RV Internal Dim ED PLAX 3.8 cm LVOT Diameter 1.9 cm LV Diastolic Volume MOD BP 114.4 cm??? 67 - 155 / 56 - 104 cm??? LV Systolic Volume MOD BP 54.9 cm??? 22 - 58 / 19 - 49 cm??? LV Ejection Fraction MOD BP 52.0 % >= 55 % LV Cardiac Index MOD BP 2044.6 cm???/min???m??? LV Diastolic Volume MOD 4C 140.1 cm??? LV Systolic Volume MOD 4C 62.9 cm??? LV Ejection Fraction MOD 4C 55.1 % LV Cardiac Index MOD 4C 2650.5 cm???/min???m??? LV Diastolic Length 4C 10.0 cm LV Systolic Length 4C 8.2 cm LV Diastolic Volume MOD 2C 82.3 cm??? LV Systolic Volume MOD 2C 48.1 cm??? LV Ejection Fraction MOD 2C 41.6 % LV Cardiac Index MOD 2C 1176.5 cm???/min???m??? LV Diastolic Length 2C 8.8 cm LV Systolic Length 2C 8.1 cm LA Volume 61.0 cm??? 18 - 58 / 22 - 52 cm??? LA Volume Index 26.2 cm???/m??? 16 - 28 cm???/m??? DOPPLER AV Peak Velocity 178.4 cm/s AV Peak Gradient 12.7 mmHg AV Mean Velocity 128.4 cm/s AV Mean Gradient 7.2 mmHg AV Velocity Time Integral 34.7 cm LVOT Peak Velocity 89.8 cm/s LVOT Peak Gradient 3.2 mmHg LVOT Velocity Time Integral 19.0 cm LVOT Stroke Volume 54.4 cm??? LVOT Stroke Volume Index 24.6 ml/m??? LVOT Cardiac Index 1866.7 cm???/min???m??? AV Area Cont Eq vti 1.6 cm??? AV Area Cont Eq pk 1.4 cm??? MV Area PHT 4.3 cm??? Mitral E Point Velocity 50.0 cm/s Mitral A Point Velocity 87.0 cm/s Mitral E to A Ratio 0.6 MV Deceleration Time 176.8 ms MV E' Velocity 4.6 cm/s Mitral E to MV E' Ratio 10.9 TR Peak Velocity 212.4 cm/s TR Peak Gradient 18.0 mmHg Right Ventricular Systolic Press 22.6 mmHg FINDINGS Left Ventricle Severely increased septal wall thickness. Mildly decreased left ventricular ejection fraction. Left ventricular cavity size normal. left ventricular ejection fraction is estimated at 50-55 %. Right Ventricle Normal right ventricular size and function. Right ventricular systolic pressure within normal limits. Right Atrium Normal right atrial size. Left Atrium Mildly increased left atrial volume. Mitral Valve Structurally normal mitral valve. Mild mitral regurgitation. Aortic Valve Trileaflet aortic valve. No aortic valve stenosis or regurgitation. Aortic valve sclerosis. Tricuspid Valve Structurally normal tricuspid valve. Mild tricuspid regurgitation. Pulmonic Valve Structurally normal pulmonic valve. Mild pulmonic regurgitation. Pericardium No pericardial effusion. Aorta Normal size aortic root and proximal ascending aorta. CONCLUSIONS LVEF 55% Severe basal septal hypertrophy. Mild concentric LVH. No obvious LVOT obstruction Grade 1 diastolic function No obvious regional wall motion abnormality Mild left atrial dilatation Mild mitral regurgitation, mild tricuspid regurgitation Aortic valve is thickened and sclerotic however not stenotic Previewed by: Dr Syed Fischer (Electronically Signed) Final Date: 25 Jul 2024 11:41
== END | disposition home or self-care (01) ==
LOC: RADECHMAIN 13:47
PROVIDERS: ATTEND Internal Medicine Critical Care Medicine
DX: R94.31 Abnormal electrocardiogram [ECG] [EKG] (principal); I08.3 Combined rheumatic disorders of mitral, aortic and tricuspid valves
CPT/HCPCS: 93306